=== PATIENT | female | born 1970 | race African-American/Black ===

== ENCOUNTER 2021-08-15 14:41 | Outpatient (CLI) | payer BC | END 2021-08-15 14:42 | disposition home or self-care (01) | LOC: CSHMAMMO 14:41 | PROVIDERS: ATTEND Family Medicine | DX: Z12.31 Encounter for screening mammogram for malignant neoplasm of breast (principal) | CPT/HCPCS: 77063; 77067 ==

== ENCOUNTER 2022-09-26 13:04 | Outpatient (CLI) | payer BC | END 2022-09-26 13:05 | disposition home or self-care (01) | LOC: CSHMAMMO 13:04 | PROVIDERS: ATTEND Family Medicine | DX: Z12.31 Encounter for screening mammogram for malignant neoplasm of breast (principal) | CPT/HCPCS: 77063; 77067 ==

== ENCOUNTER 2025-05-04 08:15 | Outpatient (CLI) | payer BC | END 2025-05-04 08:16 | disposition home or self-care (01) | LOC: CSHMAMMO 08:15 | PROVIDERS: ATTEND Family Medicine | DX: Z12.31 Encounter for screening mammogram for malignant neoplasm of breast (principal) | CPT/HCPCS: 77063; 77067 ==